=== PATIENT | female | born 1960 | race Caucasian/White ===

== ENCOUNTER → 2018-02-28 | Outpatient (CLI) | payer OTHER ==
[2018-02-28 12:22] LABS: FOLLICLE STIMULAT HORMONE 48.49 IU/L; LUTEINIZING HORMONE 21.84 IU/L; PROLACTIN 2.67 ng/mL
[2018-02-28 12:23] LABS: T3 FREE 3.34 pg/ml (2.30-4.20)
[2018-02-28 12:26] LABS: CALCIUM 9.5 mg/dl (8.5-10.1)
[2018-03-03 14:19] LABS: INSULIN LIKE GROWTH FACTOR-I 135 ng/mL (50-317)
== END | disposition home or self-care (01) ==
LOC: C.LAB1850 09:54
PROVIDERS: ATTEND Internal Medicine Endocrinology, Diabetes & Metabolism
DX: M85.80 Other specified disorders of bone density and structure, unspecified site (principal); E23.0 Hypopituitarism; E03.8 Other specified hypothyroidism; E27.49 Other adrenocortical insufficiency; E55.9 Vitamin D deficiency, unspecified